=== PATIENT | female | born 1980 | race Caucasian/White ===

== ENCOUNTER 2021-08-16 15:24 | Emergency (ER) | payer MEDICAID ==
[~2021-08-16] VITALS: Ht 170.2 cm; Wt 77.3 kg
[2021-08-16 15:32] VITALS: BP 134/97
[2021-08-16 16:28] LABS: BASOPHILS % (AUTO) 0.6 % (0-1); EOSINOPHILS # (AUTO) 0.2 X10'3 (0-0.9); EOSINOPHILS % (AUTO) 2.9 % (0-6); HEMATOCRIT 37.7 % (35.0-45.0); HEMOGLOBIN 12.9 g/dl (12.0-16.0); LYMPHOCYTES # (AUTO) 2.3 X10'3 (1.1-4.8); LYMPHOCYTES % (AUTO) 31.9 % (21-51); MEAN CORPUSCULAR HGB CONC 34.1 g/dL (33.0-36.5); MEAN PLATELET VOLUME 6.8 FL (7.4-10.4); MONOCYTES # (AUTO) 0.5 X10'3 (0-0.9); MONOCYTES % (AUTO) 6.7 % (2-12); NEUTROPHILS # (AUTO) 4.2 X10'3 (1.8-7.7); NEUTROPHILS % (AUTO) 57.9 % (42-75); PLATELET COUNT 316 X10'3 (140-440); RED BLOOD COUNT 4.44 X10'6 (4.20-5.60); WHITE BLOOD COUNT 7.3 X10'3 (4.5-11.0)
[2021-08-16 16:38] LABS: ALANINE AMINOTRANSFERASE 21 U/L (12-78); ALBUMIN 3.5 G/DL (3.4-5.0); ALBUMIN/GLOBULIN RATIO 0.9 (1.1-1.5); ALKALINE PHOSPHATASE 84 IU/L (46-116); AMYLASE 44 U/L (25-115); ANION GAP 6 (8-16); ASPARTATE AMINO TRANSFERASE 22 U/L (10-37); BILIRUBIN,TOTAL 0.2 MG/DL (0.1-1.0); BLOOD UREA NITROGEN 9 MG/DL (7-18); BUN/CREATININE RATIO 11.5 (6.6-38.0); CALCIUM 8.5 MG/DL (8.5-10.1); CHLORIDE 105 MMOL/L (99-107); CREATININE 0.78 MG/DL (0.40-0.90); GLUCOSE 94 MG/DL (70-104); LIPASE 70 U/L (73-393); POTASSIUM 4.1 MMOL/L (3.5-5.1); SODIUM 137 MMOL/L (135-145); TOTAL CARBON DIOXIDE 25.6 MMOL/L (24-32); TOTAL PROTEIN 7.5 G/DL (6.4-8.2); eGFR 81 ML/MIN
[2021-08-16 17:20] LABS: URINE HCG NEGATIVE (NEG)
[2021-08-16 17:25] LABS: CLARITY,URINE CLOUDY (Clear); COLOR,URINE YELLOW (Yellow); GLUCOSE, URINE NEGATIVE (Neg); KETONES,URINE NEGATIVE (Neg); LEUKOCYTE ESTERASE ,URINE SMALL (Neg); NITRITES, URINE NEGATIVE (Neg); OCCULT BLOOD,URINE NEGATIVE (Neg); PH,URINE 7.5 (4.8-8.0); PROTEIN,URINE NEGATIVE (Neg); UROBILINOGEN,URINE 0.2 E.U/dL (0.2-1.0)
[2021-08-16 17:33] LABS: SQUAMOUS EPITHELIAL CELL,UR MANY /LPF (FEW); UA COLLECTION TYPE CLN CATCH MIDSTREAM
[2021-08-16 17:34] LABS: BACTERIA,URINE 1+ /HPF (Neg); RBC,URINE 0-2 /HPF (0-2); WBC,URINE 0-4 /HPF (0-4)
== END 2021-08-16 18:00 | disposition home or self-care (01) ==
LOC: ER 15:26
DX: K44.9 Diaphragmatic hernia without obstruction or gangrene (principal); Z87.01 Personal history of pneumonia (recurrent); Z86.718 Personal history of other venous thrombosis and embolism
CPT/HCPCS: 36415; 80053; 81001; 81025; 82150; 83690; 85025; 99283

== ENCOUNTER 2022-03-28 06:09 | Day surgery (SDC) | payer MEDICAID ==
[2022-03-22 16:25] LABS: BASOPHILS % (AUTO) 0.5 % (0-1); EOSINOPHILS # (AUTO) 0.3 X10'3 (0-0.9); EOSINOPHILS % (AUTO) 3.6 % (0-6); LYMPHOCYTES # (AUTO) 2.4 X10'3 (1.1-4.8); MEAN CORPUSCULAR HEMOGLOBIN 29.9 PG (27.0-31.0); MEAN CORPUSCULAR HGB CONC 34.2 g/dL (33.0-36.5); MEAN CORPUSCULAR VOLUME 87.6 FL (78-98); MEAN PLATELET VOLUME 6.6 FL (7.4-10.4); MONOCYTES # (AUTO) 0.5 X10'3 (0-0.9); MONOCYTES % (AUTO) 6.1 % (2-12); NEUTROPHILS # (AUTO) 5.3 X10'3 (1.8-7.7); NEUTROPHILS % (AUTO) 61.8 % (42-75); PRE OP HEMATOCRIT 38.9 % (35.0-45.0); PRE OP HEMOGLOBIN 13.3 g/dL (12.0-16.0); PRE OP PLATELET COUNT 299 X10'3 (140-440); RED BLOOD COUNT 4.45 X10'6 (4.20-5.60); RED CELL DISTRIBUTION WIDTH 12.7 % (11.5-14.5)
[2022-03-22 16:28] LABS: HCG SERUM QL NEGATIVE
[2022-03-22 16:38] LABS: ALBUMIN 3.5 G/DL (3.4-5.0); ALBUMIN/GLOBULIN RATIO 0.8 (1.1-1.5); ALKALINE PHOSPHATASE 96 IU/L (46-116); BLOOD UREA NITROGEN 10 MG/DL (7-18); BUN/CREATININE RATIO 13.2 (6.6-38.0); CALCIUM 9.3 MG/DL (8.5-10.1); CHLORIDE 103 MMOL/L (99-107); CREATININE 0.76 MG/DL (0.40-0.90); PRE OP ALT 21 U/L (30-65); PRE OP ANION GAP 9 (8-16); PRE OP AST 29 U/L (10-37); PRE OP BILIRUB, TOTAL 0.2 MG/DL (0.0-1.0); PRE OP GLUCOSE 94 MG/DL (70-104); PRE OP POTASSIUM 4.1 MMOL/L (3.4-5.1); PRE OP SODIUM 138 MMOL/L (135-145); TOTAL CARBON DIOXIDE 26.2 MMOL/L (24-32); TOTAL PROTEIN 7.7 G/DL (6.4-8.2); eGFR 84 ML/MIN
[2022-03-28] VITALS (14 sets, daily range): BP systolic 110–137; BP diastolic 73–101
[~2022-03-28] VITALS: Ht 170.2 cm; Wt 96.7 kg
[~2022-03-28 06:09] MED LIST: NO HOME MEDS; ceFAZolin inj. 2,000 MG in dextrose 5%-water 100 ML IV ONE; famotidine 20mg tablet PO ONE; ringers solution, lacted 1,000 ML IV SCH
[2022-03-28] MEDS ORDERED: BUPIVAcaine 0.5% inj/PF 60 ML ONE (06:45)
[2022-03-28] MEDS ORDERED: LIDOcaine 1% 30ml preserv. free vial ONE (06:45)
[2022-03-28] MEDS ORDERED: BUPIVACAINE liposomal/PF 13.3 MG/ML vial IM ONE (06:45)
[2022-03-28] MEDS ORDERED: ketorolac trometh. 30mg/ml inj. ONE (07:25)
[2022-03-28] MEDS ORDERED: sevoflurane 250ml liquid IH ONE (07:25)
[2022-03-28] MEDS ORDERED: FENTANYL CITRATE/PF 50 MCG/1 ML VIAL ONE (07:30)
[2022-03-28] MEDS ORDERED: midazolam 1 mg/ML 2ml injection ONE (07:31)
[2022-03-28] MEDS ORDERED: rocuronium 10mg/ml inj IV ONE ×2 (08:35)
[2022-03-28] MEDS ORDERED: propofol inj 20 ML IV ONE (08:35)
[2022-03-28] MEDS ORDERED: LIDOcaine 2% (20mg/ml) 5ml vial ONE (08:35)
[2022-03-28] MEDS ORDERED: dexamethasone sod phosphate 4mg/ml inj. ONE (08:36)
[2022-03-28] MEDS ORDERED: ondansetron/PF 4mg/2ml inj ONE (08:36)
[2022-03-28] MEDS ORDERED: morphine 4 MG/ML inj SYRINge ONE (08:45)
[2022-03-28] MEDS ORDERED: BUPIVAcaine 0.5% inj/PF 30 ml vial IJ ONE (09:02)
[2022-03-28] MEDS ORDERED: meperidine/PF 25mg/ml syringe IV PRN ×3 (09:30)
[2022-03-28] MEDS ORDERED: proCHLORperazine 10 MG/2 ml inj IV PRN (09:30)
[2022-03-28] MEDS ORDERED: ondansetron/PF 4mg/2ml inj IV PRN (09:30)
[2022-03-28] MEDS ORDERED: ringers solution, lacted 1,000 ML IV SCH (09:30)
[2022-03-28] MEDS ORDERED: morphine 2 MG/ML inj. syringe IV PRN (09:30)
--- NOTE | 2022-03-28 10:17 | NUR ---
Received from OR via [facility], accompanied by Anesthesiologist and report given by DIDI Anesthesiologist. PATIENT WAKING UP, DENIES PAIN, V/S WNL, PIV 20G RUE AND 22G RIGHT FOOT AND RIGHT IJ TRIPLE LUMEN CATH, BANDAID LAPS SITES C/D/I TO ABDOMEN WITH ABDOMINAL BINDER. Addendum: 03/28/22 at 1028 by Horace Choi RN Amended: Links added.
[2022-03-28] MEDS ORDERED: oxyCODONE/APAP 5-325mg tablet PO PRN (10:20)
[2022-03-28] MEDS ORDERED: acetaminophen 1,000mg/100ml IV 100 ML IV ONE (10:35)
[2022-03-28] MEDS: morphine 4 MG/ML inj SYRINge IV PRN ×2 (10:49→11:10)
--- NOTE | 2022-03-28 11:30 | NUR ---
PULLED RIGHT IJ CENTRAL LINE WITH STERILE WAY AND NO S/S OF HEMATOMA OR BLEEDING NOTED. APPLIED GAUZE AND MEDIPORE TAPE.
--- NOTE | 2022-03-28 12:07 | NUR ---
ALL DISCHARGE CRITERIA HAS BEEN MET. VSS, PAIN AT A TOLERABLE LEVEL, VOIDING AND ABLE TO SAFELY AMBULATE AND TRANSFER SELF. IV TAKEN OUT WITHOUT ANY COMPLICATIONS. ALL DISCHARGE INSTRUCTIONS COVERED WITH PATIENT AND ALL QUESTIONS ANSWERED. PATIENT TAKEN OUT VIA WHEELCHAIR WITH ALL BELONGINGS TO PERSONAL VEHICLE WHERE FRIEND DROVE PATIENT HOME. Addendum: 03/28/22 at 1210 by Horace Choi RN Amended: Links added.
== END 2022-03-28 12:07 | disposition home or self-care (01) ==
LOC: PAS 06:09
PROVIDERS: ATTEND Surgery
DX: K43.6 Other and unspecified ventral hernia with obstruction, without gangrene (principal); Z79.899 Other long term (current) drug therapy; Z98.890 Other specified postprocedural states; G43.909 Migraine, unspecified, not intractable, without status migrainosus; F41.9 Anxiety disorder, unspecified
CPT/HCPCS: 36415; 49653; 64488; 71045; 71046; 80053; 82948; 84703; 85025; 93005; C1713; C1751; C1781; C9290; J0131; J0690; J1100; J2175; J2250; J2270; J2405; J2704; J3010; J3490; J7030; J7060; J7120; S0020; S2900; Z7506; Z7508; Z7512; A4215; A4618; J1885

== ENCOUNTER 2022-07-26 19:22 | Emergency (ER) | payer MEDICAID ==
[~2022-07-26] VITALS: Ht 170.2 cm; Wt 93.2 kg
[~2022-07-26 19:22] MED LIST changes: -ceFAZolin inj. 2,000 MG in dextrose 5%-water 100 ML IV ONE; -famotidine 20mg tablet PO ONE; -ringers solution, lacted 1,000 ML IV SCH
[2022-07-26 20:34] LABS: URINE HCG NEGATIVE (NEG)
[2022-07-26 20:40] LABS: CLARITY,URINE SLIGHTLY CLOUDY (Clear); COLOR,URINE YELLOW (Yellow); GLUCOSE, URINE NEGATIVE (Neg); KETONES,URINE NEGATIVE (Neg); LEUKOCYTE ESTERASE ,URINE NEGATIVE (Neg); NITRITES, URINE NEGATIVE (Neg); OCCULT BLOOD,URINE TRACE-INTACT (Neg); PROTEIN,URINE NEGATIVE (Neg); UROBILINOGEN,URINE 0.2 E.U/dL (0.2-1.0)
[2022-07-26 20:44] LABS: BASOPHILS # (AUTO) 0.1 X10'3 (0-0.2); BASOPHILS % (AUTO) 0.7 % (0-1); EOSINOPHILS # (AUTO) 0.3 X10'3 (0-0.9); HEMATOCRIT 41.2 % (35.0-45.0); HEMOGLOBIN 13.9 g/dl (12.0-16.0); LYMPHOCYTES # (AUTO) 2.2 X10'3 (1.1-4.8); LYMPHOCYTES % (AUTO) 25.1 % (21-51); MEAN CORPUSCULAR HEMOGLOBIN 29.4 PG (27.0-31.0); MEAN CORPUSCULAR HGB CONC 33.8 g/dL (33.0-36.5); MEAN PLATELET VOLUME 6.9 FL (7.4-10.4); MONOCYTES # (AUTO) 0.6 X10'3 (0-0.9); MONOCYTES % (AUTO) 6.8 % (2-12); NEUTROPHILS # (AUTO) 5.5 X10'3 (1.8-7.7); NEUTROPHILS % (AUTO) 63.4 % (42-75); PLATELET COUNT 313 X10'3 (140-440); RED BLOOD COUNT 4.74 X10'6 (4.20-5.60); RED CELL DISTRIBUTION WIDTH 13.4 % (11.5-14.5); WHITE BLOOD COUNT 8.7 X10'3 (4.5-11.0)
[2022-07-26 20:47] LABS: ALANINE AMINOTRANSFERASE 31 U/L (12-78); ALBUMIN 3.6 G/DL (3.4-5.0); ALBUMIN/GLOBULIN RATIO 0.8 (1.1-1.5); ALKALINE PHOSPHATASE 114 IU/L (46-116); ANION GAP 9 (8-16); ASPARTATE AMINO TRANSFERASE 33 U/L (10-37); BLOOD UREA NITROGEN 10 MG/DL (7-18); BUN/CREATININE RATIO 11.6 (10.0-20.0); CHLORIDE 106 MMOL/L (99-107); CREATININE 0.86 MG/DL (0.40-0.90); GLUCOSE 89 MG/DL (70-104); POTASSIUM 3.8 MMOL/L (3.5-5.1); SODIUM 142 MMOL/L (135-145); TOTAL CARBON DIOXIDE 27.1 MMOL/L (24-32); TOTAL PROTEIN 7.9 G/DL (6.4-8.2); eGFR 72 ML/MIN
[2022-07-26 20:47] LABS: UA COLLECTION TYPE CLN CATCH MIDSTREAM
[2022-07-26 20:50] LABS: BACTERIA,URINE FEW /HPF (Neg); MUCUS STRANDS MANY /LPF (Neg); SQUAMOUS EPITHELIAL CELL,UR MANY /LPF (FEW); WBC,URINE 0-4 /HPF (0-4)
[2022-07-26 20:58] LABS: BILIRUBIN,TOTAL 0.1 MG/DL (0.1-1.0)
[2022-07-26 21:52] VITALS: BP 140/78
== END 2022-07-26 21:54 | disposition home or self-care (01) ==
LOC: ER 19:23
DX: G89.29 Other chronic pain (principal); M54.9 Dorsalgia, unspecified; F17.200 Nicotine dependence, unspecified, uncomplicated; F15.10 Other stimulant abuse, uncomplicated; Z79.899 Other long term (current) drug therapy
CPT/HCPCS: 36415; 80053; 81001; 81025; 83880; 85025; 99283